=== PATIENT | female | born 1985 | race African-American/Black ===

== ENCOUNTER 2020-12-09 10:18 | Emergency (ER) | payer SELFPAY ==
[2020-12-09] MEDS ORDERED: methylPREDNISolone Acetate 40 mg/ml Vial ONE (10:59)
[2020-12-09 11:27] LABS: Bilirubin Small (Negative); Blood, Urine Moderate (Negative); Clarity Slightly Cloudy (Clear); Glucose, Urine (Dipstick) Negative (Negative); Ketone, Urine Negative (Negative); Leukocyte Trace (Negative); Nitrite Negative (Negative); Protein, Urine (Dipstick) Trace mg/dL (Neg-Trace); pH, Urine 5.5 (5.0-9.0)
[2020-12-09 11:32] LABS: Pregnancy Test - Urine (BHCG) Negative (Negative); Pregu Control Background? CLEAR/WHITE (CLR/WHITE); Pregu Control Bar Appear? YES (CONTROL BAR); Specific Gravity 1.027 (1.002-1.036)
[2020-12-09 11:33] LABS: Specific Gravity, Urine 1.027 (1.002-1.036)
[2020-12-09 12:01] LABS: Amphetamine Detected (NotDetected); Barbiturates Screen Not Detected (NotDetected); Benzodiazepine Screen Not Detected (NotDetected); Cocaine Metabolite Screen Detected (NotDetected); Medtox Control Line Valid? VALID (VALID); Methadone Not Detected (NotDetected); Methamphetamine Detected (NotDetected); Opiate Screen Not Detected (NotDetected); Oxycodone Screen Not Detected (NotDetected); Phencyclidine (PCP) Not Detected (NotDetected); THC/Cannabinoid Screen Not Detected (NotDetected); Tricyclic Screen Not Detected (NotDetected)
[2020-12-09 12:06] LABS: RBC/HPF 0-3 HPF (0-3)
[2020-12-09 12:07] LABS: Bacteria/HPF Rare-Few HPF (None Seen); Calcium Oxalate Crystals Rare HPF (None Seen); Mucous/LPF 1+ LPF (<2+); Squamous Epithelial 0-3 HPF (0-3); Transitional Epithelial 0-3 HPF (None Seen); Trichomonas/HPF 1+ HPF (None Seen)
== END 2020-12-09 11:29 | disposition home or self-care (01) ==
LOC: BURERS 10:18
DX: N39.0 Urinary tract infection, site not specified (principal); G70.01 Myasthenia gravis with (acute) exacerbation; A59.9 Trichomoniasis, unspecified
CPT/HCPCS: 80306; 81003; 81015; 81025; 87086; 96372; 99284; J2920

== ENCOUNTER 2020-12-25 15:51 | Emergency (ER) | payer SELFPAY ==
[2020-12-25 17:06] LABS: #Eosinphils 0.1 thou/uL (0.0-0.7); #Lymphocytes 1.9 thou/uL (1.20-3.40); #Monocytes 0.3 thou/uL (0.11-0.59); #Neutrophils 4.8 thou/uL (1.40-6.50); %Basophils 0.5 % (0.0-1.0); %Eosinophils 1.5 % (0.0-10.0); %Lymphocytes 26.7 % (21.0-51.0); %Monocytes 4.4 % (0.0-10.0); %Neutrophils 66.9 % (42.0-75.0); Hemoglobin 13.4 g/dL (12.0-16.0); Mean Corpuscular Hemoglobin 28.1 pg (27.0-31.0); Mean Corpuscular Volume 87.9 fL (78.0-98.0); Mean Platelet Volume 8.1 fL (7.4-10.4); Platelet Count 198 thou/uL (130-400); RBC Distribution Width 14.3 % (11.5-14.5); Red Blood Cell (RBC) Count 4.76 mill/uL (4.20-5.40); White Blood Cell (WBC) Count 7.1 thou/uL (4.8-10.8)
[2020-12-25] MEDS ORDERED: Pyridostigmine Bromide IR 60 MG TAB PO SCH (17:15)
[2020-12-25] MEDS ORDERED: Adenosine 6 MG/2 ML VIAL ONE (17:19)
[2020-12-25 17:23] LABS: ALT (SGPT) 9 U/L (8-55); AST (SGOT) 10 U/L (5-34); Alkaline Phosphatase 38 U/L (40-110); Anion Gap 13 mmol/L (10-20); BUN (Urea Nitrogen) 6 mg/dL (7.0-18.7); Bilirubin, Total 0.3 mg/dL (0.2-1.2); Calc. Creatinine Clearance 0 mL/min (70-130); Calcium 9.3 mg/dL (7.8-10.44); Carbon Dioxide 25 mmol/L (22-29); Chloride 105 mmol/L (98-107); Globulin 2.9 g/dL (2.4-3.5); Glucose 86 mg/dL (70-105); Potassium 3.9 mmol/L (3.5-5.1); Protein, Total 6.9 g/dL (6.0-8.3); Sodium 139 mmol/L (136-145)
[2020-12-25 17:56] LABS: Bilirubin Negative (Negative); Blood, Urine Negative (Negative); Clarity Clear (Clear); Glucose, Urine (Dipstick) Negative (Negative); Ketone, Urine Negative (Negative); Leukocyte Trace (Negative); Nitrite Negative (Negative); Protein, Urine (Dipstick) Negative (Neg-Trace); Urobilinogen 0.2 mg/dL (Less than 2); pH, Urine 8.5 (5.0-9.0)
[2020-12-25] MEDS ORDERED: diphenhydrAMINE 25 MG CAP ONE (18:14)
[2020-12-25] MEDS ORDERED: Acetaminophen 500 MG TAB ONE (18:14)
[2020-12-25 18:22] LABS: Bacteria/HPF Rare-Few HPF (None Seen); RBC/HPF 0-3 HPF (0-3); Squamous Epithelial 0-3 HPF (0-3)
[2020-12-25] MEDS ORDERED: OCTAGAM FS SCH (19:30)
[2020-12-25 20:05] LABS: SARS-CoV-2 NAA Rapid Test Not Detected (NotDetected)
== END 2020-12-25 19:30 | disposition short-term general hospital (02) ==
LOC: BURERS 15:51
DX: G70.01 Myasthenia gravis with (acute) exacerbation (principal); Z20.822 Contact with and (suspected) exposure to COVID-19
CPT/HCPCS: 36415; 71045; 80053; 81003; 81015; 85025; 93005; 96372; J0153; Q0163; U0002

== ENCOUNTER 2021-03-29 14:28 | Emergency (ER) | payer MEDICARE | END 2021-03-29 14:57 | disposition home or self-care (01) | LOC: BURERS 14:28 | DX: G70.01 Myasthenia gravis with (acute) exacerbation (principal); I95.9 Hypotension, unspecified | CPT/HCPCS: 99284 ==

== ENCOUNTER 2021-08-16 13:54 | Emergency (ER) | payer MEDICARE | END 2021-08-16 14:24 | disposition home or self-care (01) | LOC: BURERS 13:54 | DX: G70.01 Myasthenia gravis with (acute) exacerbation (principal); M81.0 Age-related osteoporosis without current pathological fracture; F17.210 Nicotine dependence, cigarettes, uncomplicated | CPT/HCPCS: 99281 ==

== ENCOUNTER 2021-09-09 10:15 | Emergency (ER) | payer MEDICARE ==
[2021-09-09] MEDS ORDERED: predniSONE 20 MG TAB ONE (10:35)
[2021-09-09 11:08] LABS: Bilirubin Negative (Negative); Blood, Urine Trace (Negative); Clarity Cloudy (Clear); Glucose, Urine (Dipstick) Negative (Negative); Ketone, Urine Negative (Negative); Leukocyte Small (Negative); Nitrite Negative (Negative); Protein, Urine (Dipstick) 30 mg/dL (Neg-Trace); pH, Urine 7.5 (5.0-9.0)
[2021-09-09 11:09] LABS: Pregnancy Test - Urine (BHCG) Negative (Negative); Pregu Control Background? CLEAR/WHITE (CLR/WHITE); Pregu Control Bar Appear? YES (CONTROL BAR)
[2021-09-09 11:14] LABS: Bacteria/HPF 2+ HPF (None Seen); Mucous/LPF 2+ LPF (<2+); RBC/HPF 0-3 HPF (0-3); Squamous Epithelial 0-3 HPF (0-3); WBC/HPF 21-50 HPF (0-3)
[2021-09-09] MEDS ORDERED: Pyridostigmine Bromide IR 60 MG TAB PO SCH (11:15)
[2021-09-10 12:23] LABS: Chlam.trachomatis by PCR,Urine Not Detected (NotDetected)
== END 2021-09-09 11:28 | disposition home or self-care (01) ==
LOC: BURERS 10:15
DX: G70.01 Myasthenia gravis with (acute) exacerbation (principal); N39.0 Urinary tract infection, site not specified; M81.0 Age-related osteoporosis without current pathological fracture; F17.210 Nicotine dependence, cigarettes, uncomplicated; Z76.0 Encounter for issue of repeat prescription
CPT/HCPCS: 81003; 81015; 81025; 87077; 87086; 87186; 87491; 87591; 99284; J7512

== ENCOUNTER 2021-11-01 19:13 | Emergency (ER) | payer MEDICARE ==
[2021-11-01] MEDS ORDERED: methylPREDNISolone Acetate 40 mg/ml Vial ONE (21:41)
[2021-11-01] MEDS ORDERED: Pyridostigmine Bromide IR 60 MG TAB PO SCH (22:00)
== END 2021-11-01 22:00 | disposition home or self-care (01) ==
LOC: BURERS 19:13
DX: G35 Multiple sclerosis (principal); Z91.14 Patient's other noncompliance with medication regimen; F17.210 Nicotine dependence, cigarettes, uncomplicated
CPT/HCPCS: 96372; 99284; J2920

== ENCOUNTER 2023-11-26 19:05 | Emergency (ER) | payer MEDICARE, MEDICAID, OTHER ==
[2023-11-26] MEDS ORDERED: Acetaminophen 325 MG TAB ONE (19:22)
[2023-11-26 20:19] LABS: Bilirubin Negative (Negative); Blood, Urine Negative (Negative); Clarity Clear (Clear); Glucose, Urine (Dipstick) Negative (Negative); Ketone, Urine Negative (Negative); Leukocyte Negative (Negative); Nitrite Negative (Negative); Protein, Urine (Dipstick) Negative (Neg-Trace); Specific Gravity, Urine 1.015 (1.005-1.030); Urobilinogen 0.2 mg/dL (Less than 2)
[2023-11-26 20:22] LABS: Pregnancy Test - Urine (BHCG) Negative (Negative); Pregu Control Background? CLEAR/WHITE (CLR/WHITE); Pregu Control Bar Appear? YES (CONTROL BAR); Specific Gravity 1.015 (1.002-1.036)
[2023-11-26 20:29] LABS: Bacteria/HPF Rare-Few HPF (None Seen); CAUTI Indications for Culture Dysuria,urgency,freq; RBC/HPF None Seen HPF (0-3); Squamous Epithelial 0-3 HPF (0-3); WBC/HPF 0-3 HPF (0-3)
[2023-11-26 20:30] LABS: Urine Culture Reflex No No
[2023-11-26] MEDS ORDERED: cefTRIAXone (ROCEPHIN) 500 MG VIAL ONE (20:31)
[2023-11-28 11:22] LABS: Chlam.trachomatis by PCR,Urine Not Detected (NotDetected); GC N.gonorrhoeae PCR,UrineVOID Not Detected (NotDetected)
== END 2023-11-26 20:44 | disposition home or self-care (01) ==
LOC: EDBD → BURERS 19:05
DX: M54.50 Low back pain, unspecified (principal); N76.0 Acute vaginitis; M54.6 Pain in thoracic spine; F17.210 Nicotine dependence, cigarettes, uncomplicated; V89.2XXA Person injured in unspecified motor-vehicle accident, traffic, initial encounter
CPT/HCPCS: 81001; 81025; 87480; 87491; 87510; 87591; 87660; 96372; 99284; J0696